=== PATIENT | male | born 1955 | race Native Hawaiian/Other Pacific Islander ===

== ENCOUNTER 2019-12-18 06:08 | Outpatient (CLI) | payer OTHER ==
[2019-12-18 06:33] LABS: PLATELET COUNT 169 K/uL (142-355)
[2019-12-18 06:39] LABS: POTASSIUM 4.1 mmol/L (3.6-5.2)
== END 2019-12-18 20:03 | disposition home or self-care (01) ==
LOC: LABW 06:08
PROVIDERS: Internal Medicine
DX: N18.3 Chronic kidney disease, stage 3 (moderate) (principal)
CPT/HCPCS: 80053; 81000; 82306; 82330; 82570; 83735; 83970; 84100; 84155; 85027